=== PATIENT | female | born 1990 | race Caucasian/White ===

== ENCOUNTER 2018-05-27 19:13 | Emergency (ER) | payer OTHER ==
[~2018-05-27] VITALS: Ht 160 cm; Wt 65.8 kg
[2018-05-27 19:13] VITALS: BP 116/64
--- NOTE | 2018-05-27 19:19 | ED.ADGEN ---
Adult General Chief Complaint Chief Complaint ".. I was coming out of chicken coop.. and twisted my Rt. ankle.. it was about 2 this afternoon... " HPI HPI Patient is a 28 year old female who presents with above hx and complaints of right ankle pain and edema. Patient has some laxity and anterior draw and on inversion of right ankle. There is obvious swelling around the right malleolus area. No upper leg tenderness. No other injuries reported. No previous injury to ankle. No foot pain , Has some laxity of tendon with inversion. Is able to walk with a limp. Patient is normally healthy. Distal neurovascular intact. Patient normally follows with Dr. Boyer Review of Systems Review of Systems Constitutional: Denies fever or chills [] Eyes: Denies change in visual acuity, redness, or eye pain [] HENT: Denies nasal congestion or sore throat [] Respiratory: Denies cough or shortness of breath [] Cardiovascular: No additional information not addressed in HPI [] GI: Denies abdominal pain, nausea, vomiting, bloody stools or diarrhea [] : Denies dysuria or hematuria [] Musculoskeletal: Denies back pain or joint pain []except complaints in right ankle Integument: Denies rash or skin lesions [] Neurologic: Denies headache, focal weakness or sensory changes [] Endocrine: Denies polyuria or polydipsia [] All other systems were reviewed and found to be within normal limits, except as documented in this note. Family History Family History Noncontributory Current Medications Current Medications See nursing for home meds Allergies Allergies Allergies Coded Allergies Type Severity Reaction Last Updated Verified No Known Drug Allergies 05/27/18 No Physical Exam Physical Exam Constitutional: Well developed, well nourished, no acute distress, non-toxic appearance. [] HENT: Normocephalic, atraumatic, bilateral external ears normal, oropharynx moist, no oral exudates, nose normal. [] Eyes: PERRLA, EOMI, conjunctiva normal, no discharge. [] Neck: Normal range of motion, no tenderness, supple, no stridor. [] Cardiovascular:Heart rate regular rhythm, no murmur [] Lungs & Thorax: Bilateral breath sounds clear to auscultation [] Abdomen: Bowel sounds normal, soft, no tenderness, no masses, no pulsatile masses. [] Skin: Warm, dry, no erythema, no rash. [] Back: No tenderness, no CVA tenderness. [] Extremities: No tenderness, no cyanosis, no clubbing, ROM intact, no edema. [] Except findings in right ankle Neurologic: Alert and oriented X 3, normal motor function, normal sensory function, no focal deficits noted. [] Psychologic: Affect normal, judgement normal, mood normal. [] Current Patient Data Vital Signs Vital Signs Date Time Temp Pulse Resp B/P (MAP) Pulse Ox O2 Delivery O2 Flow Rate FiO2 05/27/18 19:13 99.0 72 16 99 Room Air EKG EKG [] Radiology/Procedures Radiology/Procedures My interpretation of x-rays of right ankle shows no obvious fracture or dislocation. Does have obvious swelling of the right lateral malleolus. [] Course & Med Decision Making Course & Med Decision Making Pertinent Labs and Imaging studies reviewed. (See chart for details) Ice, elevation, rest, splint, and follow-up primary care. Return if any concerns. Take [id number] Tylenol and ibuprofen. [] Final Impression Final Impression 1. Ankle[] sprain right Dragon Disclaimer Dragon Disclaimer This electronic medical record was generated, in whole or in part, using a voice recognition dictation system. CHARU LEMA MD May 27, 2018 19:19
--- NOTE | 2018-05-27 23:35 | RAD ---
Indication:Twisted right ankle tonight, pain TECHNIQUE: 3 views of the right ankle COMPARISON:None FINDINGS/ impression: No acute fracture or dislocation. Ankle mortise is intact. Mild soft tissue swelling overlying lateral malleolus. Electronically signed by: Declan Vang DO (05/27/2018 11:31 PM) [facility]
== END 2018-05-27 19:50 | disposition home or self-care (01) ==
LOC: ER 19:13
DX: S93.401A Sprain of unspecified ligament of right ankle, initial encounter (principal); X50.9XXA Other and unspecified overexertion or strenuous movements or postures, initial encounter; Y93.89 Activity, other specified; Y92.89 Other specified places as the place of occurrence of the external cause; Y99.8 Other external cause status
CPT/HCPCS: 29515; 73610; 99284